=== PATIENT | female | born 1970 | race Caucasian/White ===

== ENCOUNTER 2016-10-22 10:39 | Day surgery (SDC) | payer OTHER ==
[~2016-10-22] VITALS: Ht 154.9 cm; Wt 86.4 kg
[2016-10-22] VITALS (15 sets, daily range): BP systolic 76–141; BP diastolic 59–75; PULSE 80–93; RESP 16–27; Ht 154.9 cm; Wt 86.4 kg
[~2016-10-22 10:39] MED LIST: ALBU18HF IH; FLUT1DIS22 IH
[2016-10-22] MEDS ORDERED: METF500T4 PO (11:31)
[2016-10-22] MEDS ORDERED: IBUP-1542 PO (11:32)
[2016-10-22] MEDS ORDERED: TRIA1CAP PO (11:33)
[2016-10-22] MEDS ORDERED: ROPIVACAINE 0.5 % 30 ML VIAL ONE (12:10)
[2016-10-22] MEDS ORDERED: BUPIVACAINE 0.5% (SDV) 30 ML INJ ONE (12:10)
[2016-10-22] MEDS ORDERED: NEOMYC/POLYMYX/BACIT 30 GM OINT ONE ×2 (12:10→15:11)
[2016-10-22] MEDS ORDERED: LIDOCAINE 2% (SDV) 5 ML INJ ONE (12:34)
[2016-10-22] MEDS ORDERED: PROPOFOL 20 ML ONE (12:34)
[2016-10-22] MEDS ORDERED: MEPERIDINE 100 MG INJ ONE (12:35)
[2016-10-22] MEDS ORDERED: ONDANSETRON 4 MG INJ ONE (12:35)
[2016-10-22] MEDS ORDERED: METOCLOPRAMIDE 10 MG INJ ONE (12:35)
[2016-10-22] MEDS ORDERED: CEFAZOLIN 1 GM INJ ONE (12:57)
[2016-10-22] MEDS ORDERED: ROPIVACAINE 0.5 % 30 ML VIAL INJ ONE (14:35)
[2016-10-22] MEDS ORDERED: DIPHENHYDRAMINE 50 MG INJ IV PRN (15:00)
[2016-10-22] MEDS ORDERED: morphine (1 MG/ML) 10ML SYRINGE IV PRN ×2 (15:00)
[2016-10-22] MEDS ORDERED: METOCLOPRAMIDE 10 MG INJ IV PRN (15:00)
[2016-10-22] MEDS ORDERED: FENTAnyl 50 MCG/ML VIAL IV PRN ×2 (15:00)
[2016-10-22] MEDS ORDERED: hydrALAzine 20 MG INJ IV PRN (15:00)
[2016-10-22] MEDS ORDERED: ONDANSETRON 4 MG INJ IV PRN (15:00)
[2016-10-22] MEDS ORDERED: OXYCODONE/ACETAMINOPHEN (5/325) TAB PO PRN ×3 (15:00→16:00)
[2016-10-22] MEDS ORDERED: HYDROmorphONE (0.2 MG/ML) 10ML SYG IV PRN ×2 (15:00)
[2016-10-22] MEDS ORDERED: LABETALOL HCL 20MG INJ IV PRN (15:00)
[2016-10-22] MEDS ORDERED: MIDAZOLAM 1 MG/ML 2 ML INJ IV PRN (15:00)
[2016-10-22] MEDS ORDERED: EPHEDrine SULFATE 50 MG/5 ML SYG IV PRN (15:00)
[2016-10-22] MEDS ORDERED: MEPERIDINE 25 MG INJ IV PRN (15:00)
--- NOTE | 2016-10-22 15:27 | HPN ---
Date/Time of Note Date/Time of Note DATE: 10/22/16 TIME: 12:35 Interval H&P Admission Note Pt. seen H&P reviewed: No system changes ALEXANDER LICONA MD Oct 22, 2016 15:27
--- NOTE | 2016-10-22 15:35 | OPR ---
Date/Time of Note Date/Time of Note DATE: 10/22/16 TIME: 15:27 Operative Report Procedure Date: Oct 22, 2016 Preoperative Diagnosis 1. Left knee medial meniscal tear Postoperative Diagnosis 1. Left knee medial meniscal tear 2. Left knee medial femoral condyle partial-thickness chondral defect 3. 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 left knee arthroscopy with chondroplasty of the patellofemoral and medial compartment 2. Left knee arthroscopy with medial meniscal repair Surgeon: ALEXANDER LICONA MD Anesthesia: general Anesthesiologist: ROSEMARY CURRY MD Tourniquet Time: 60 minutes at 250 mmHg Estimated Blood Loss: minimal Specimens None Complications: None Pt Condition Post Procedure: stable Disposition: PACU Indications Patient is a 46-year-old female who sustained a traumatic injury to her right knee medial meniscus. She attempted nonoperative management with rehabilitation and anti-inflammatories but continued to have clicking catching and locking in her knee. MRI revealed a posterior horn medial meniscal tear in the periphery of the meniscus. Patient was indicated for surgery after failure of nonoperative management. Operative\Procedure Findings Implants: 5 cc of platelet rich plasma spun on the [employer] Luis machine at 4% hematocrit; 2 [employer] fast T fix meniscal repair device sutures Procedure Description RISK NOTE: Patient was explained the risks and benefits of the surgery in the patients stock[place] language, including not limited to infection, bleeding, loss of limb, loss of life, need for future surgery, risk of anesthesia, risk of injury to the blood vessels and nerves, ligaments or tendons, and risk of deep vein thrombosis. Patient understood that she still may progress onto knee arthritis and that may require a knee replacement in the future. Patient understood these risks and wished to proceed with the surgery. OPERATIVE NOTE: The correct operative site was noted and marked in the preoperative holding area and confirmed with both patient and consent. The patient was then brought back into the operative theater, placed supine on the operative table. Left knee was examined under anesthesia. Range of motion was 0-120. There is no varus or valgus or anterior posterior instability. There is no crepitus noticed at the patellofemoral joint. Tourniquet was then placed on the operative extremity thigh non-sterilely. Patient was then given preoperative antibiotics and then prepped and draped in normal sterile fashion. A timeout was taken and all parties in the room agreed it was the correct patient, correct extremity and correct procedure. Standard anterior lateral portal was created and the knee joint was entered with a blunt tipped trocar, followed by 30 arthroscope. Inflow was achieved with a pump and the pressure maintained at approximately 50 mmHg. A routine arthroscopic surgery was performed. Suprapatella pouch was unremarkable. The undersurface of the patella showed no chondromalacia The medial and lateral gutters were visualized. There were no loose bodies seen. There was no inflamed hypertrophic plica noted in the anterior and superior medial aspect of the knee. The popliteus hiatus was entered and was normal. Lateral compartment was entered and no chondromalacia was seen on the lateral tibial plateau and femoral condyle. Scope was then brought into the intercondylar notch and an anteromedial portal was made. Shaver was brought into the knee and small amount of fat pad and scar tissue was initially gently debrided. The anterior cruciate ligament was intact and probed. The knee was brought into a valgus position and the medial compartment was entered. The articular surface of the medial femoral condyle and medial tibial plateau revealed a chondral defect that was partial thickness on the posterior aspect of the medial femoral condyle with a flap of cartilage. This defect measured approximately 2 x 3 mm in size and was gently debrided with shaver. Chondroplasty was then carried out along the weightbearing aspect of the medial femoral condyle, medial tibial plateau, taking care to remove only loose articular cartilage debris and preserve functional articular cartilage. A probe was introduced and a peripheral meniscal tear was found in the posterior aspect of the medial meniscus that was found to be in the red red zone and was carefully probed and was found to be unstable. Given the location of the meniscal tear in the red red zone was determined the tear was amenable to fixation and a rasp was introduced to stimulate healing potential at the injury site of the meniscal tear. 2 Pearce [employer]hew fast T fix sutures were placed in a vertical mattress fashion across the longitudinal tear in the meniscus. The meniscus was reprobed at this time and found to be stable The lateral compartment was reentered and the loose chondral debris was debrided with motorized shaver. Attention was then directed back to the patella femoral joint and a chondroplasty was carried out along the weightbearing aspect of the trochlea and undersurface of the patella to again remove loose debris and maintain functional active articular cartilage. The knee was then irrigated with additional 2 L of lactated Ringers solution. Excess fluid was then drained. Range of motion was then attempted showing 0- 125 degrees of motion The portal sites were closed with 4-0 Monocryl and Steri-Strips and dressed with Xeroform and triple antibiotic ointment. The knee was then injected with 20 cc of 0.5% plain ropivacaine. The knee was then injected with 5 cc of platelet rich plasma that was spun at 4% hematocrit. A dry sterile dressing was then applied followed by a bulky soft bandage in a thigh-high Hubert stocking. A T ROM knee brace was then applied to the knee and set at a 0 extension lock position At the completion of the surgery patient had palpable pulses, soft arms and brisk cap refill. The patient tolerated the procedure well and was taken to the PACU without any complications. All sponge and needle counts were correct. Patient will begin pain medicine and 48 hours of antibiotics as well as aspirin 81 mg for the duration of 4 weeks postoperatively. Patient remain nonweightbearing to the left leg for the next 4 weeks and will become toe-touch weightbearing at 4 weeks. ALEXANDER LICONA MD Oct 22, 2016 15:35
[2016-10-22] MEDS ORDERED: morphine 2 MG INJ IV PRN (16:00)
== END 2016-10-22 17:20 | disposition home or self-care (01) ==
LOC: SDS 10:39
PROVIDERS: ATTEND Orthopaedic Surgery
DX: M23.204 Derangement of unspecified medial meniscus due to old tear or injury, left knee (principal); M94.262 Chondromalacia, left knee; I10 Essential (primary) hypertension; E78.5 Hyperlipidemia, unspecified; J45.909 Unspecified asthma, uncomplicated
CPT/HCPCS: 29881; 84703; C1713; J0690; J2175; J2405; J2765; J2795